=== PATIENT | male | born 1945 | race American Indian/Alaskan Native ===

== ENCOUNTER 2017-11-01 06:13 | Day surgery (SDC) | payer MEDICARE ==
[2017-11-01 07:13] LABS: Basophils # (Auto) 0.1 K/mm3 (0.0-0.1); Basophils % (Auto) 1.2 % (0.0-1.8); Eosinophils # (Auto) 0.2 K/mm3 (0.0-0.4); Eosinophils % (Auto) 2.6 % (0.0-4.3); Hematocrit 39.4 % (35.5-45.6); Hemoglobin 13.5 gm/dl (11.8-15.2); Lymphocytes # (Auto) 1.7 K/mm3 (1.2-5.4); Lymphocytes % (Auto) 25.7 % (13.4-35.0); Mean Corpuscular HGB Conc 34 % (32-34); Mean Corpuscular Hemoglobin 32 pg (28-32); Mean Corpuscular Volume 94 fl (84-94); Monocytes # (Auto) 0.5 K/mm3 (0.0-0.8); Monocytes % (Auto) 8.3 % (0.0-7.3); Platelet Count 214 K/mm3 (140-440); Red Blood Count 4.19 M/mm3 (3.65-5.03); Red Cell Distribution Width 14.9 % (13.2-15.2)
[2017-11-01 07:41] LABS: INR 0.95 (0.87-1.13)
[2017-11-01 07:42] LABS: Partial Thromboplastin Time 23.8 Sec. (24.2-36.6)
[2017-11-01 09:31] LABS: Blood Urea Nitrogen 18 mg/dL (9-20)
[2017-11-01] MEDS ORDERED: VERSED IV ONE ×2 (10:07→10:26)
[2017-11-01] MEDS ORDERED: SUBLIMAZE ONE (10:08)
[2017-11-01] MEDS ORDERED: GELFOAM 12 X 7 TP ONE ×2 (10:17→11:00)
[2017-11-01] MEDS ORDERED: SUBLIMAZE IV ONE (10:26)
--- NOTE | 2017-11-01 11:20 | Short Stay Summary ---
Short Stay Documentation Date of service: 11/01/17 - History Principal diagnosis: right renal mass H&P: obtained from office - Allergies and Medications Current Medications: Allergies lisinopril Adverse Reaction (Unverified 11/01/17 06:14) Swelling prednisone Adverse Reaction (Unverified 11/01/17 06:14) Swelling Home Medications Medication Instructions Recorded Confirmed Last Taken Type Aspirin [Lo-Dose Aspirin EC] 81 mg PO DAILY 11/01/17 11/01/17 10/24/17 History Atorvastatin Calcium [Lipitor] 10 mg PO HS 11/01/17 11/01/17 10/31/17 History Bicalutamide [Casodex] 50 mg PO DAILY 11/01/17 11/01/17 11/01/17 History Digoxin 0.25 mg PO DAILY 11/01/17 11/01/17 11/01/17 History Hydralazine HCl 50 mg PO BID 11/01/17 11/01/17 11/01/17 History Losartan Potassium [Cozaar] 100 mg PO DAILY 11/01/17 11/01/17 11/01/17 History Metoprolol [Lopressor] 100 mg PO BID 11/01/17 11/01/17 11/01/17 History amLODIPine [Norvasc] 10 mg PO DAILY 11/01/17 11/01/17 11/01/17 History cloNIDine [Catapres] 0.2 mg PO BID 11/01/17 11/01/17 11/01/17 History - Brief post op/procedure progress note Date of procedure: 11/01/17 Pre-op diagnosis: right renal mass Post-op diagnosis: same Procedure: Right renal mass biopsy Anesthesia: local Surgeon: AMY PEGUERO Estimated blood loss: minimal Pathology: list (3 core biopsies handed off to pathology in attendance) Condition: stable - Disposition Condition at discharge: Good Disposition: [id number] TO HOME OR SELFCARE Short Stay Discharge Plan Activity: advance as tolerated Weight Bearing Status: Weight Bear as Tolerated Diet: regular Wound: keep clean and dry, per your surgeon's advice Follow up with: SCOT ARGUETA MD [Other] - 7 Days
[2017-11-01 14:57] VITALS: BP 134/90
--- NOTE | 2017-11-01 15:22 | Cat Scan Report ---
Exam: CT-guided biopsy of right renal mass Clinical indication: Patient with history of right renal mass with variable enhancement noted on outside CT Date: 11/01/2017 Procedure: Following an explanation of the risks and benefits and alternatives; informed consent was obtained. The patient was brought to the CT suite and placed in prone position on the examination table. Initially, a contrasted view of the abdomen was performed which demonstrates an exophytic medial lobe approximately 3 cm renal mass which demonstrates variable enhancement. Appropriate access site was chosen through the renal parenchyma and the patient's right back and flank were prepped and draped in usual sterile fashion. 1% lidocaine was used for anesthesia. His intermittent CT guidance, a 10 cm 19-gauge trocar needle was advanced to the margin of a renal mass. A 20-gauge biopsy needle was then advanced through the 19-gauge needle and a total of 3 core biopsies were obtained and handed off to pathology in attendance who stated their adequacy. The biopsy needle was removed and Gelfoam injected into the tract. The needle was withdrawn and hemostasis achieved on the skin surface using a compression. A sterile dressing was applied. The patient tolerated the procedure well. There were no immediate post procedure complications. Conscious sedation was performed in the guidance of radiologic dressing. Continuous cardiopulmonary monitoring as illustrated Impression: 1) CT-guided biopsy of right renal mass with 3 core samples obtained and sent to pathologist in attendance.
== END 2017-11-01 15:30 | disposition home or self-care (01) ==
LOC: CATHLABREC 06:13 → EDSTATUS 08:30 → CATHLABREC 15:30
PROVIDERS: ATTEND Radiology Diagnostic Radiology
DX: N26.9 Renal sclerosis, unspecified (principal); D41.01 Neoplasm of uncertain behavior of right kidney; E78.00 Pure hypercholesterolemia, unspecified; I10 Essential (primary) hypertension; M19.90 Unspecified osteoarthritis, unspecified site; Z88.8 Allergy status to other drugs, medicaments and biological substances; Z79.82 Long term (current) use of aspirin; Z79.899 Other long term (current) drug therapy; Z79.01 Long term (current) use of anticoagulants; Z87.891 Personal history of nicotine dependence; Z95.1 Presence of aortocoronary bypass graft; Z98.890 Other specified postprocedural states; Z85.46 Personal history of malignant neoplasm of prostate
CPT/HCPCS: 36415; 50200; 77012; 82550; 82565; 84520; 85025; 85610; 85730; 88173; 88305; 88333; A4649; J2250; J3010; Q9967; 88172